=== PATIENT | female | born 1970 | race Caucasian/White ===

== ENCOUNTER 2018-11-05 10:48 | Emergency (ER) | payer MEDICAID ==
--- NOTE | 2018-11-05 13:44 | EDM.PDOC ---
ED HPI GENERAL MEDICAL PROBLEM - General Chief Complaint: Lower Extremity Injury/Pain Stated Complaint: POSSIBLE BLOOD CLOT RT LEG Time Seen by Provider: 11/05/18 13:44 Source of Information: Reports: Patient History Limitations: Reports: No Limitations - History of Present Illness INITIAL COMMENTS - FREE TEXT/NARRATIVE: pt arrived with increased pain and swelling in the rt hip and upper femur area. She has not had a fall. She does have a history of lung Ca and has known metastatic disease. She has surgery recently and had a bipolar rt hip done. At that time there was some removal of tumor. She started having increased swelling a few days ago and her pain has gotten alot worse. Onset: Gradual, Other ( worse today. ) Duration: Hour(s): Location: Reports: Lower Extremity, Right Associated Symptoms: Reports: No Other Symptoms Right Upper Leg Pain Score (Numeric/FACES): 6 - Related Data Allergies Allergy/AdvReac Type Severity Reaction Status Date / Time No Allergy Information Allergy none Verified 01/15/16 08:28 Available Home Meds: Home Meds Calcium Carbonate/Vitamin D3 [Calcium 500 + Vit D 200 Caplet] 1 each PO BID 03/18 [History] Gabapentin [Neurontin] 300 mg PO TID 11/05/18 [History] Hydrocodone/Acetaminophen [Hydrocodon-Acetaminophen 5-325] 1 - 2 each PO QID 03/18 [History] Morphine Sulfate [Morphine Sulfate Cr] 15 mg PO BID 11/05/18 [History] Past Medical History - Past Health History Medical/Surgical History: Denies Medical/Surgical History Oncologic (Cancer) History: Reports: Lung - Infectious Disease History Infectious Disease History: Reports: Chicken Pox - Past Surgical History Musculoskeletal Surgical History: Reports: Hip Replacement, Other (See Below) Other Musculoskeletal Surgeries/Procedures:: 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 Social & Family History - Tobacco Use Smoking Status *Q: Former Smoker Used Tobacco, but Quit: Yes Month/Year Tobacco Last Used: 4 months ago - Caffeine Use Caffeine Use: Reports: Coffee - Recreational Drug Use Recreational Drug Use: No Review of Systems - Review of Systems Review Of Systems: See Below Constitutional: Reports: No Symptoms Eyes: Reports: No Symptoms Ears: Reports: No Symptoms Nose: Reports: No Symptoms Mouth/Throat: Reports: No Symptoms Respiratory: Reports: No Symptoms Cardiovascular: Reports: No Symptoms GI/Abdominal: Reports: No Symptoms Genitourinary: Reports: No Symptoms Musculoskeletal: Reports: Other (pain in the rt hip. There is definite increase in swelling in the hip area. ) Skin: Reports: No Symptoms Neurological: Reports: No Symptoms ED EXAM, GENERAL - Physical Exam Exam: See Below Free Text/Narrative:: Pt arrived with increased pain and swelling in the rt hip/ She has no history of a fall. Exam Limited By: No Limitations General Appearance: Alert, Anxious, Moderate Distress Ears: Normal TMs Nose: Normal Inspection Throat/Mouth: Normal Inspection Head: Atraumatic Neck: Normal Inspection Respiratory/Chest: No Respiratory Distress GI/Abdominal: Soft, Non-Tender (Female) Exam: Deferred Rectal (Female) Exam: Deferred Back Exam: Normal Inspection Extremities: Other (pain and swelling in the rt hip. She has increased pain and is having difficulty getting around. ) Neurological: Alert, Oriented, Normal Cognition Course - Vital Signs Last Recorded V/S: Last Vital Signs Temp 37.0 C 11/05/18 16:10 Pulse 94 11/05/18 16:10 Resp 16 11/05/18 16:10 BP 138/89 11/05/18 16:10 Pulse Ox 98 11/05/18 16:10 - Orders/Labs/Meds Labs: Laboratory Tests 11/05/18 11/05/18 11/05/18 Range/Units 13:53 13:53 14:51 WBC 7.5 (4.5-11.0) K/uL RBC 4.03 (3.30-5.50) M/uL Hgb 10.5 L (12.0-15.0) g/dL Hct 32.3 L (36.0-48.0) % MCV 80 (80-98) fL MCH 26 L (27-31) pg MCHC 33 (32-36) % Plt Count 503 H (150-400) K/uL Neut % (Auto) 59 (36-66) % Lymph % (Auto) 30 (24-44) % [place] % (Auto) 9 H (2-6) % Eos % (Auto) 2 (2-4) % Baso % (Auto) 1 (0-1) % Sodium 137 L (140-148) mmol/L Potassium 4.2 (3.6-5.2) mmol/L Chloride 100 (100-108) mmol/L Carbon Dioxide 28 (21-32) mmol/L Anion Gap 13.2 (5.0-14.0) mmol/L BUN 7 (7-18) mg/dL Creatinine 0.7 (0.6-1.0) mg/dL Est Cr Clr Drug Dosing 76.04 mL/min Estimated GFR (MDRD) > 60 (>60) Glucose 91 (74-106) mg/dL Calcium 9.7 (8.5-10.1) mg/dL Total Bilirubin 0.2 (0.2-1.0) mg/dL AST 14 L (15-37) U/L ALT 17 (12-78) U/L Alkaline Phosphatase 102 (46-116) U/L Total Protein 8.5 H (6.4-8.2) g/dL Albumin 2.9 L (3.4-5.0) g/dL Globulin 5.6 H (2.3-3.5) g/dL Albumin/Globulin Ratio 0.5 L (1.2-2.2) Urine Color Yellow Urine Appearance Clear Urine pH 7.0 (4.5-8.0) Ur Specific [place] 1.005 L (1.008-1.030) Urine Protein Negative (NEGATIVE) mg/dL Urine Glucose (UA) Normal (NEGATIVE) mg/dL Urine Ketones Negative (NEGATIVE) mg/dL Urine Occult Blood Negative (NEGATIVE) Urine Nitrite Negative (NEGATIVE) Urine Bilirubin Negative (NEGATIVE) Urine Urobilinogen Normal (NORMAL) mg/dL Ur Leukocyte Esterase Negative (NEGATIVE) Urine RBC 0-5 (0-5) Urine WBC 0-5 (0-5) Ur Epithelial Cells Many Amorphous Sediment Few Urine Bacteria Not seen Urine Mucus Not seen Meds: Medications Discontinued Medications Generic Name Dose Route Start Last Admin Trade Name Freq PRN Reason Stop Dose Admin Hydrocodone Bitart/Acetaminophen 1 tab 11/05/18 17:59 11/05/18 18:03 [place] 325-5 Mg PO 11/05/18 18:00 1 tab ONETIME ONE Administration - Re-Assessments/Exams Free Text/Narrative Re-Assessment/Exam: 11/05/18 17:54 Us revealed no evidence of clots in the leg. A cat scan of the hip revealed bone destruction and a pathological fracture of the proximal femur. 11/05/18 18:41 Dr Vigil-- her orthopeditis was contacted and he advised that she keep the appt for thur. 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 keep appt with [facility] on thur--Dr Vigil. jc to percocet for rescue relief of pain, . Hold norco while on percocet, cont morphine as ordered.
--- NOTE | 2018-11-05 15:41 | US ---
VL Duplex Lwr Ext Veins Ltd Rt INDICATION: swelling and pain in the leg FINDINGS: Ultrasound examination of the lower extremity using Doppler and compressive technique demonstrates that the common femoral, femoral, and popliteal veins are patent, and negative for thrombus. The calf veins were segmentally visualized and are negative where seen. IMPRESSION: Negative for deep venous thrombosis in the right lower extremity.
--- NOTE | 2018-11-05 17:00 | CRLCT ---
HISTORY: Right hip pain. Prior hip replacement. Prior tumor. TECHNIQUE: Noncontrast CT of the right hip. COMPARISON: No prior available for comparison at time interpretation. FINDINGS: There is a bipolar right hip replacement. There is extensive abnormal periprosthetic lucency/osteolysis about the femoral component with areas of associated cortical destruction/absence, especially medially. There is also an area of cortical destruction present along the anterior lateral aspect of the proximal femur below the level of the lesser trochanter. Findings likely relate to neoplastic infiltration with osteolysis. Aggressive infection could appear similarly. On axial image #46 of series 4, there is linear lucency involving the greater trochanter compatible with fracture. There is also effectively fracture through the intertrochanteric region anteriorly on coronal image #30 of series 5 with cortical deficiency. - There is soft tissue fullness involving the vastus medialis muscle proximally which may relate to tumor infiltration or inflammatory change. - There is no fracture involving the osseous acetabulum nor dislocation of the prosthesis. The right superior and inferior pubic rami are intact. IMPRESSION: 1. Bipolar right hip replacement. 2. Abnormal periprosthetic lucency involving the proximal femur with cortical destruction and pathologic fracture. Findings likely relate to neoplastic infiltration (given this patient`s history). Aggressive infection could appear similarly. 3. Some soft tissue fullness of the adjacent vastus medialis muscle proximally may relate to tumor infiltration or inflammatory change. 4. Findings discussed with Dr. Wilson on 11/05/2018 at 16:54 hours. Dictated by Earl Miranda MD @ 11/05/2018 4:59:18 PM Please note that all CT scans at this facility use dose modulation, iterative reconstruction, and/or weight-based dosing when appropriate to reduce radiation dose to as low as reasonably achievable. Dictated by: Earl Miranda MD @ 11/05/2018 16:59:25 (Electronically Signed)
[2018-11-05] MEDS ORDERED: Acetaminophen/HYDROcodone 325-5 MG Tab PO ONE (17:59)
== END 2018-11-05 19:02 | disposition home or self-care (01) ==
LOC: JP.ED 10:48
DX: M84.559A Pathological fracture in neoplastic disease, hip, unspecified, initial encounter for fracture (principal); Z87.891 Personal history of nicotine dependence; Z79.899 Other long term (current) drug therapy
CPT/HCPCS: 36415; 73700; 80053; 81001; 85025; 93971; 99284; A9270

== ENCOUNTER 2018-11-11 09:24 | Emergency (ER) | payer MEDICAID ==
--- NOTE | 2018-11-11 11:09 | EDM.PDOC ---
<OfficerMj - Last Filed: 11/11/18 12:32> ED HPI GENERAL MEDICAL PROBLEM - General Chief Complaint: General Stated Complaint: BACK, LEG AND BUTT PAIN Time Seen by Provider: 11/11/18 10:55 - Related Data Allergies Allergy/AdvReac Type Severity Reaction Status Date / Time No Allergy Information Allergy none Verified 11/11/18 10:28 Available Home Meds: Home Meds Calcium Carbonate/Vitamin D3 [Calcium 500 + Vit D 200 Caplet] 1 each PO BID 03/18 [History] Gabapentin [Neurontin] 300 mg PO TID 11/05/18 [History] Hydrocodone/Acetaminophen [Hydrocodon-Acetaminophen 5-325] 1 - 2 each PO QID 03/18 [History] Morphine Sulfate [Morphine Sulfate Cr] 15 mg PO BID 11/05/18 [History] oxyCODONE 1 tab PO Q4H 11/11/18 [History] oxyCODONE 1 tab PO Q4H PRN 11/11/18 [History] ED EXAM, GENERAL - Physical Exam Free Text/Narrative:: Agree with exam below Course - Vital Signs Last Recorded V/S: Last Vital Signs Temp 36.8 C 11/11/18 11:50 Pulse 88 11/11/18 11:50 Resp 16 11/11/18 11:50 BP 124/84 11/11/18 11:50 Pulse Ox 98 11/11/18 11:50 - Orders/Labs/Meds Orders: Active Orders 24 hr Category Date Time Status Sodium Chloride 0.9% [Saline Flush] Med 11/11/18 11:14 Active 10 ml FLUSH ASDIRECTED PRN Saline Lock Insert [OM.PC] Routine Oth 11/11/18 11:14 Ordered Medication Orders Sodium Chloride (Saline Flush) 10 ml FLUSH ASDIRECTED PRN PRN Reason: Keep Vein Open Last Admin: 11/11/18 11:35 Dose: 10 ml Admin: 11/11/18 11:31 Dose: 10 ml Meds: Medications Generic Name Dose Route Start Last Admin Trade Name Freq PRN Reason Stop Dose Admin Sodium Chloride 10 ml 11/11/18 11:14 11/11/18 11:35 Saline Flush FLUSH 10 ml ASDIRECTED PRN Administration Keep Vein Open Discontinued Medications Generic Name Dose Route Start Last Admin Trade Name Freq PRN Reason Stop Dose Admin Hydromorphone HCl 1 mg 11/11/18 11:14 11/11/18 11:32 Dilaudid IVPUSH 11/11/18 11:15 1 mg ONETIME ONE Administration Ketamine HCl 10 mg 11/11/18 11:45 11/11/18 11:39 Ketalar IV 11/11/18 11:46 10 mg ONETIME ONE Administration Ketamine HCl 10 mg 11/11/18 11:14 11/11/18 11:40 Ketalar IV 11/11/18 11:15 Not Given ONETIME ONE Departure - Departure Time of Disposition: 12:34 Disposition: Home, Self-Care 01 Clinical Impression: Pain due to malignant neoplasm metastatic to bone, Pain - Discharge Information Instructions: What You Need to Know About Chronic Back Pain Referrals: Fawad Guzman NP [Primary Care Provider] - Forms: ED Department Discharge Additional Instructions: Resume previous medication regime. Follow up with provider in morning. Ask about Palliative care for better pain management. - My Orders Last 24 Hours: My Active Orders 11/11/18 11:14 Sodium Chloride 0.9% [Saline Flush] 10 ml FLUSH ASDIRECTED PRN Saline Lock Insert [OM.PC] Routine - Assessment/Plan Last 24 Hours: My Active Orders 11/11/18 11:14 Sodium Chloride 0.9% [Saline Flush] 10 ml FLUSH ASDIRECTED PRN Saline Lock Insert [OM.PC] Routine Plan: Assessment Acuity = acute on chronic Site and laterality = intractable bone pain low back leg right Etiology = [secondary to bone cancer in radiation therapy Manifestations = chronic pain now improved Location of injury = Home Lab values = none Plan She had good improvement combination Dilaudid and ketamine she will follow-up with her cancer care provider tomorrow Mj Cain MD was personally available for consultation in the ED. I have reviewed the chart and agree with the documentation as recorded by the SALES SECRETARY Student, including the assessment, treatment plan and disposition. Mj Cain MD personally saw and examined the patient. I have reviewed and agree with the SALES SECRETARY Student's findings. This note was dictated using [employer] voice recognition software please call with any questions on syntax or grammar. <Shana Mcmahan - Last Filed: 11/11/18 12:53> ED HPI GENERAL MEDICAL PROBLEM - General Source of Information: Reports: Patient History Limitations: Reports: No Limitations - History of Present Illness INITIAL COMMENTS - FREE TEXT/NARRATIVE: Patient comes in to ED for complaints of severe leg and back pain which began on after long car ride from radiation therapy in [place]. Onset: Gradual Onset Date: 11/15/18 Location: Reports: Back, Upper Extremity, Right, Radiates to (right gluteal region) Quality: Reports: Sharp (states it's normal pain type for her, but this is more intense. ), Stabbing, Throbbing Improves with: Reports: None Worsens with: Reports: None Associated Symptoms: Reports: No Other Symptoms Treatments LOCAL ANNOUNCER: Reports: Other (see below) (has taken all her prescription medications without relief. 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: Reports: Oncologic (Cancer) History: Reports: Lung - Infectious Disease History Infectious Disease History: Reports: Chicken Pox, Measles, Mumps - Past Surgical History Respiratory Surgical History: Reports: Lung Biopsies, Other (See Below) Other Respiratory Surgeries/Procedures: Lung CA Female Surgical History: Reports: Tubal Ligation Musculoskeletal Surgical History: Reports: Hip Replacement, Other (See Below) Other Musculoskeletal Surgeries/Procedures:: 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 Social & Family History - Tobacco Use Smoking Status *Q: Former Smoker Years of Tobacco use: 30 Packs/Tins Daily: 1 Used Tobacco, but Quit: Yes Month/Year Tobacco Last Used: Jul 2018 Second Hand Smoke Exposure: No - Caffeine Use Caffeine Use: Reports: Coffee, Soda - Recreational Drug Use Recreational Drug Use: No ED ROS GENERAL - Review of Systems Review Of Systems: See Below Constitutional: Reports: No Symptoms HEENT: Reports: No Symptoms Respiratory: Reports: No Symptoms Cardiovascular: Reports: No Symptoms Endocrine: Reports: No Symptoms GI/Abdominal: Reports: No Symptoms : Reports: No Symptoms Musculoskeletal: Reports: No Symptoms Skin: Reports: No Symptoms Neurological: Reports: Other (non-ambulating due to surgical procedure) Psychiatric: Reports: No Symptoms Hematologic/Lymphatic: Reports: No Symptoms Immunologic: Reports: No Symptoms ED EXAM, GENERAL - Physical Exam Exam: See Below Exam Limited By: No Limitations General Appearance: Alert, WD/WN, No Apparent Distress Ears: Hearing Grossly Normal Respiratory/Chest: No Respiratory Distress, Lungs Clear, Normal Breath Sounds, No Accessory Muscle Use, Chest Non-Tender Cardiovascular: Normal Peripheral Pulses, Regular Rate, Rhythm, No Edema Back Exam: Other (able to sit forward in cart) Extremities: No Pedal Edema Neurological: Alert, Oriented, CN II-XII Intact, Normal Cognition, Normal Gait, Normal Reflexes, No Motor/Sensory Deficits Psychiatric: Normal Affect, Normal Mood Skin Exam: Warm, Dry, Intact, Normal Color, No Rash Course - Vital Signs Text/Narrative:: Patient admits that has constant pain since surgery, but able to take medications and get comfortable usually. Feels that lying in the brace made for her by the radiology team and a long car ride back from treatment makes this pain intractable. After discussion with Irais in pharmacy, she will mix Ketamine 10mg in small amount NS or LR for infusion given by provider team, as discussion with duty manager revealed that ER Nursing staff are not in scope of their practice if they administer this medication. 1215: I confirmed patient identity per two identifiers and then administered 10 mg ketamine per infusion pump over 20 minutes, after recieved by pharmacy. Post infusion vital signs: BP 120/84, P 91, pulse ox 98%. Patient rates pain 2/10 and says this is very manageable. Hasn't had this comfort for many months. Long discussion with patient and her about having a Palliative Care consult for pain management. Discussed concept of this service. Patient will inquire with team at appointment tomorrow. After consult with preceptor, recommendation to resume regular schedule of activity and pain medications. - Orders/Labs/Meds Orders: Active Orders 24 hr Category Date Time Status Sodium Chloride 0.9% [Saline Flush] Med 11/11/18 11:14 Active 10 ml FLUSH ASDIRECTED PRN Saline Lock Insert [OM.PC] Routine Oth 11/11/18 11:14 Ordered Medication Orders Sodium Chloride (Saline Flush) 10 ml FLUSH ASDIRECTED PRN PRN Reason: Keep Vein Open Last Admin: 11/11/18 11:35 Dose: 10 ml Admin: 11/11/18 11:31 Dose: 10 ml Meds: Medications Generic Name Dose Route Start Last Admin Trade Name Freq PRN Reason Stop Dose Admin Sodium Chloride 10 ml 11/11/18 11:14 11/11/18 11:35 Saline Flush FLUSH 10 ml ASDIRECTED PRN Administration Keep Vein Open Discontinued Medications Generic Name Dose Route Start Last Admin Trade Name Freq PRN Reason Stop Dose Admin Hydromorphone HCl 1 mg 11/11/18 11:14 11/11/18 11:32 Dilaudid IVPUSH 11/11/18 11:15 1 mg ONETIME ONE Administration Ketamine HCl 10 mg 11/11/18 11:45 11/11/18 11:39 Ketalar IV 11/11/18 11:46 10 mg ONETIME ONE Administration Ketamine HCl 10 mg 11/11/18 11:14 11/11/18 11:40 Ketalar IV 11/11/18 11:15 Not Given ONETIME ONE - My Orders Last 24 Hours: My Active Orders 11/11/18 11:14 Sodium Chloride 0.9% [Saline Flush] 10 ml FLUSH ASDIRECTED PRN Saline Lock Insert [OM.PC] Routine - Assessment/Plan Last 24 Hours: My Active Orders 11/11/18 11:14 Sodium Chloride 0.9% [Saline Flush] 10 ml FLUSH ASDIRECTED PRN Saline Lock Insert [OM.PC] Routine
[2018-11-11] MEDS ORDERED: Ketamine 500 MG/5 ML MDV IV ONE ×2 (11:14→11:45)
[2018-11-11] MEDS ORDERED: HYDROmorphone 1 MG/ML Syringe IVPUSH ONE (11:14)
[2018-11-11] MEDS: Sodium Chloride 0.9% 10 ML Syringe FLUSH PRN ×2 (11:31→11:35)
== END 2018-11-11 12:40 | disposition home or self-care (01) ==
LOC: JP.ED 09:24
DX: G89.3 Neoplasm related pain (acute) (chronic) (principal); C79.51 Secondary malignant neoplasm of bone; Z87.891 Personal history of nicotine dependence; Z79.899 Other long term (current) drug therapy
CPT/HCPCS: 96365; 96375; 99283; J1170; 99284

== ENCOUNTER 2019-01-12 21:41 | Emergency (ER) | payer MEDICAID ==
[2019-01-12] MEDS ORDERED: Sodium Chloride 0.9% 10 ML Syringe FLUSH PRN (21:48)
[2019-01-12] MEDS ORDERED: Ondansetron 4 MG/2 ML SDV IVPUSH ONE (21:48)
[2019-01-12] MEDS ORDERED: HYDROmorphone 1 MG/ML Syringe IVPUSH ONE (21:48)
--- NOTE | 2019-01-12 23:46 | EDM.PDOC ---
ED HPI GENERAL MEDICAL PROBLEM - General Chief Complaint: Chest Pain Stated Complaint: SOB, STOMACH PAINS Time Seen by Provider: 01/12/19 21:48 Source of Information: Reports: Patient History Limitations: Reports: No Limitations - History of Present Illness INITIAL COMMENTS - FREE TEXT/NARRATIVE: This patient who has lung cancer metastatic to bone and has been undergoing chemotherapy presented with sudden severe upper abdominal pain beginning at about 9:15 PM tonight. She described it as 10 out of 10 and in the epigastric area. There is been no vomiting. It does cause her to be nauseated. Those initially the pain went from a upper abdomen all the way into the chest. Now it has settled into just the upper abdomen chest/abd Pain Score (Numeric/FACES): 10 - Related Data Allergies Allergy/AdvReac Type Severity Reaction Status Date / Time No Allergy Information Allergy none Verified 01/12/19 21:48 Available Home Meds: Home Meds Calcium Carbonate/Vitamin D3 [Calcium 500 + Vit D 200 Caplet] 1 each PO BID 03/18 [History] Gabapentin [Neurontin] 300 mg PO TID 11/05/18 [History] Hydrocodone/Acetaminophen [Hydrocodon-Acetaminophen 5-325] 1 - 2 each PO QID 03/18 [History] Morphine Sulfate [Morphine Sulfate Cr] 15 mg PO BID 11/05/18 [History] oxyCODONE 1 tab PO Q4H 11/11/18 [History] oxyCODONE 1 tab PO Q4H PRN 11/11/18 [History] Past Medical History - Past Health History Medical/Surgical History: Denies 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: Musculoskeletal History: Reports: Back Pain, Chronic Oncologic (Cancer) History: Reports: Bone, Lung - Infectious Disease History Infectious Disease History: Reports: Chicken Pox, Measles, Mumps - Past Surgical History Respiratory Surgical History: Reports: Lung Biopsies, Other (See Below) Other Respiratory Surgeries/Procedures: Lung CA Female Surgical History: Reports: Tubal Ligation Musculoskeletal Surgical History: Reports: Hip Replacement, Other (See Below) Other Musculoskeletal Surgeries/Procedures:: 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 ED EXAM, GENERAL - Physical Exam Exam: See Below Exam Limited By: No Limitations General Appearance: Alert, Moderate Distress, Thin Eye Exam: Bilateral Eye: Normal Inspection Throat/Mouth: Normal Oropharynx Neck: Supple Respiratory/Chest: Lungs Clear Cardiovascular: Regular Rate, Rhythm GI/Abdominal: Normal Bowel Sounds, Other (Severe tenderness to the upper abdomen mostly in midline and left upper quadrant. Difficult to examine her because it was so tender.) Extremities: Normal Inspection Neurological: Alert, Oriented Skin Exam: Warm, Dry Course - Vital Signs Last Recorded V/S: Last Vital Signs Temp 37.3 C 01/12/19 22:11 Pulse 74 01/12/19 22:54 Resp 12 01/12/19 22:54 BP 105/52 L 01/12/19 22:54 Pulse Ox 99 01/12/19 22:54 - Orders/Labs/Meds Orders: Active Orders 24 hr Category Date Time Status EKG Documentation Completion [RC] ASDIRECTED Care 01/12/19 22:13 Active Sodium Chloride 0.9% [Saline Flush] Med 01/12/19 21:48 Active 10 ml FLUSH ASDIRECTED PRN Saline Lock Insert [OM.PC] Urgent Oth 01/12/19 21:48 Ordered EKG 12 Lead [EK] Urgent Ther 01/12/19 22:13 Ordered Medication Orders Sodium Chloride (Saline Flush) 10 ml FLUSH ASDIRECTED PRN PRN Reason: Keep Vein Open Last Admin: 01/12/19 21:58 Dose: 10 ml Labs: Laboratory Tests 01/12/19 01/12/19 01/12/19 Range/Units 22:23 22:23 22:23 WBC 6.7 (4.5-11.0) K/uL RBC 4.11 (3.30-5.50) M/uL Hgb 9.8 L (12.0-15.0) g/dL Hct 31.6 L (36.0-48.0) % MCV 77 L (80-98) fL MCH 24 L (27-31) pg MCHC 31 L (32-36) % Plt Count 237 (150-400) K/uL Neut % (Auto) 67 H (36-66) % Lymph % (Auto) 19 L (24-44) % [place] % (Auto) 13 H (2-6) % Eos % (Auto) 0 L (2-4) % Baso % (Auto) 0 (0-1) % Sodium 140 (140-148) mmol/L Potassium 3.5 L (3.6-5.2) mmol/L Chloride 103 (100-108) mmol/L Carbon Dioxide 28 (21-32) mmol/L Anion Gap 12.5 (5.0-14.0) mmol/L BUN 16 D (7-18) mg/dL Creatinine 0.7 (0.6-1.0) mg/dL Est Cr Clr Drug Dosing 75.73 mL/min Estimated GFR (MDRD) > 60 (>60) Glucose 134 H (74-106) mg/dL Calcium 8.5 (8.5-10.1) mg/dL Total Bilirubin 0.2 (0.2-1.0) mg/dL AST 46 H D (15-37) U/L ALT 108 H (12-78) U/L Alkaline Phosphatase 55 (46-116) U/L Total Protein 6.6 (6.4-8.2) g/dL Albumin 2.8 L (3.4-5.0) g/dL Globulin 3.8 H (2.3-3.5) g/dL Albumin/Globulin Ratio 0.7 L (1.2-2.2) Lipase 212 (73-393) U/L Meds: Medications Generic Name Dose Route Start Last Admin Trade Name Freq PRN Reason Stop Dose Admin Sodium Chloride 10 ml 01/12/19 21:48 01/12/19 21:58 Saline Flush FLUSH 10 ml ASDIRECTED PRN Administration Keep Vein Open Discontinued Medications Generic Name Dose Route Start Last Admin Trade Name Freq PRN Reason Stop Dose Admin Hydromorphone HCl 1 mg 01/12/19 21:48 01/12/19 21:56 Dilaudid IVPUSH 01/12/19 21:49 1 mg ONETIME ONE Administration Ondansetron HCl 4 mg 01/12/19 21:48 01/12/19 21:55 Zofran IVPUSH 01/12/19 21:49 4 mg ONETIME ONE Administration - Re-Assessments/Exams Free Text/Narrative Re-Assessment/Exam: 01/12/19 23:43 Patient was reexamined after she received Dilaudid and Zofran IV. She got complete pain relief from this and I repeated the abdominal exam and it is completely nontender now even to pretty deep palpation. Labs were reviewed and there are no significant abnormalities with that would explain the pain. The pain and tenderness suggested biliary colic possibly from a gallstone but that has been completely relieved. A gallbladder ultrasound might be considered in the future but that's not needed tonight. Departure - Departure Time of Disposition: 23:45 Disposition: Home, Self-Care 01 Condition: Fair Clinical Impression: Acute abdominal pain Referrals: PCP,None [Primary Care Provider] - Additional Instructions: You may actually have a gallstone which plugged up your gallbladder for a little while. Those stones can become dislodged and allow the gallbladder to drain normally and that will completely relieve the pain. If there is a gallstone then this can happen again. You would need to have an ultrasound to see if there is something in the gallbladder and frequently there is. There is no need to have a gallbladder ultrasound tonight however. You should talk this over with your regular Dr. - My Orders Last 24 Hours: My Active Orders 01/12/19 21:48 Sodium Chloride 0.9% [Saline Flush] 10 ml FLUSH ASDIRECTED PRN Saline Lock Insert [OM.PC] Urgent 01/12/19 22:13 EKG Documentation Completion [RC] ASDIRECTED EKG 12 Lead [EK] Urgent - Assessment/Plan Last 24 Hours: My Active Orders 01/12/19 21:48 Sodium Chloride 0.9% [Saline Flush] 10 ml FLUSH ASDIRECTED PRN Saline Lock Insert [OM.PC] Urgent 01/12/19 22:13 EKG Documentation Completion [RC] ASDIRECTED EKG 12 Lead [EK] Urgent
== END 2019-01-12 23:58 | disposition home or self-care (01) ==
LOC: JP.ED 21:41
DX: R10.12 Left upper quadrant pain (principal); R10.13 Epigastric pain; C34.90 Malignant neoplasm of unspecified part of unspecified bronchus or lung; C79.51 Secondary malignant neoplasm of bone; Z79.899 Other long term (current) drug therapy; Z98.51 Tubal ligation status
CPT/HCPCS: 36415; 80053; 83690; 85025; 93005; 96374; 96375; 99285; J1170; J2405

== ENCOUNTER 2019-03-18 10:05 | Emergency (ER) | payer MEDICAID ==
--- NOTE | 2019-03-18 10:54 | EDM.PDOC ---
ED HPI GENERAL MEDICAL PROBLEM - General Chief Complaint: Lower Extremity Injury/Pain Stated Complaint: RIGHT LEG PAIN/SWELLING Time Seen by Provider: 03/18/19 10:30 Source of Information: Reports: Patient History Limitations: Reports: No Limitations - History of Present Illness INITIAL COMMENTS - FREE TEXT/NARRATIVE: 48-year-old female with a history of colon cancer, right hip repair in August of this year presents with some diffuse right leg pain and slight swelling. She discusses with her oncologist and he sent her in for an ultrasound of her leg to rule out DVT. She has no shortness of breath, abdominal pain, palpitations or other complaints currently. Onset: Gradual (Over the past 2 days) Location: Reports: Lower Extremity, Right Associated Symptoms: Denies: Fever/Chills, Headaches, Loss of Appetite, Nausea/ Vomiting, Shortness of Breath, Weakness Abdomen Pain Score (Numeric/FACES): 5 - Related Data Allergies Allergy/AdvReac Type Severity Reaction Status Date / Time No Allergy Information Allergy none Verified 03/18/19 10:19 Available Home Meds: Home Meds Calcium Carbonate/Vitamin D3 [Calcium 500 + Vit D 200 Caplet] 1 each PO BID 03/18 [History] Morphine Sulfate [Morphine Sulfate Cr] 15 mg PO BID 11/05/18 [History] oxyCODONE 1 tab PO Q4H PRN 11/11/18 [History] Folic Acid 1 mg PO DAILY 03/18/19 [History] HYDROmorphone [Dilaudid] 4 mg PO Q4H PRN 03/18/19 [History] Potassium Chloride [Klor-Con] 20 meq PO DAILY 03/18/19 [History] Pregabalin [Lyrica] 50 mg PO DAILY 03/18/19 [History] Ursodiol 250 mg PO DAILY 03/18/19 [History] Past Medical History - Past Health History Medical/Surgical History: Denies Medical/Surgical History Gastrointestinal History: Reports: Cholelithiasis 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: Musculoskeletal History: Reports: Back Pain, Chronic Oncologic (Cancer) History: Reports: Bone, Lung - Infectious Disease History Infectious Disease History: Reports: Chicken Pox, Measles, Mumps - Past Surgical History Respiratory Surgical History: Reports: Lung Biopsies, Other (See Below) Other Respiratory Surgeries/Procedures: Lung CA Female Surgical History: Reports: Tubal Ligation Musculoskeletal Surgical History: Reports: Hip Replacement, Other (See Below) Other Musculoskeletal Surgeries/Procedures:: 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 Social & Family History - Tobacco Use Smoking Status *Q: Former Smoker Used Tobacco, but Quit: Yes Month/Year Tobacco Last Used: 2018 - Caffeine Use Caffeine Use: Reports: None - Recreational Drug Use Recreational Drug Use: No Review of Systems - Review of Systems Review Of Systems: See Below Constitutional: Denies: Fever Respiratory: Reports: No Symptoms Cardiovascular: Reports: No Symptoms GI/Abdominal: Reports: No Symptoms Skin: Denies: Pallor, Erythema Neurological: Denies: Paresthesia ED EXAM, GENERAL - Physical Exam Exam: See Below Exam Limited By: No Limitations General Appearance: Alert, No Apparent Distress Respiratory/Chest: No Respiratory Distress, Lungs Clear Cardiovascular: Regular Rate, Rhythm Extremities: Other (Patient is a well-healed surgical scar over the right lateral hip. She has mild palpation tenderness to the hamstring area and popliteal area of the right leg and just a trace of ankle edema.) Course - Vital Signs Last Recorded V/S: Last Vital Signs Temp 96.9 F 03/18/19 10:22 Pulse 91 03/18/19 10:22 Resp 14 03/18/19 10:22 BP 116/74 03/18/19 10:22 Pulse Ox 100 03/18/19 10:22 - Orders/Labs/Meds Orders: Active Orders 24 hr Category Date Time Status VL Duplex Lwr Ext Veins Ltd Rt [US] Stat Exams 03/18/19 10:38 Taken - Re-Assessments/Exams Free Text/Narrative Re-Assessment/Exam: 03/18/19 10:54 A right lower extremity DVT ultrasound was ordered. 03/18/19 11:16 DVT study was negative. Patient was encouraged to wear her NESTOR stockings to reduce swelling and discomfort. Activity as tolerated. Continue her regular medications. Departure - Departure Time of Disposition: 11:29 Disposition: Home, Self-Care 01 Clinical Impression: Lower extremity edema - Discharge Information Instructions: Edema Referrals: PCP,None [Primary Care Provider] - Forms: ED Department Discharge Care Plan Goals: Increase activity as tolerated, elevate leg when able and continue your regular medications. NESTOR stockings applied in the morning and worn all day will be helpful. - My Orders Last 24 Hours: My Active Orders 03/18/19 10:38 VL Duplex Lwr Ext Veins Ltd Rt [US] Stat - Assessment/Plan Last 24 Hours: My Active Orders 03/18/19 10:38 VL Duplex Lwr Ext Veins Ltd Rt [US] Stat
--- NOTE | 2019-03-18 13:21 | US ---
VL Duplex Lwr Ext Veins Ltd Rt INDICATION: leg swelling, cancer doc sent in for ultrasound FINDINGS: Ultrasound examination of the lower extremity using Doppler and compressive technique demonstrates that the common femoral, femoral, and popliteal veins are patent, and negative for thrombus. The calf veins were segmentally visualized and are negative where seen. IMPRESSION: No evidence for deep venous thrombosis.
== END 2019-03-18 11:29 | disposition home or self-care (01) ==
LOC: JP.ED 10:05
DX: R60.0 Localized edema (principal); Z87.891 Personal history of nicotine dependence; Z79.899 Other long term (current) drug therapy
CPT/HCPCS: 93971-26; 93971-RT; 99283-25

== ENCOUNTER 2019-05-08 17:57 | Emergency (ER) | payer MEDICAID ==
[2019-05-08] MEDS ORDERED: Ondansetron 4 MG/2 ML SDV IVPUSH ONE (19:03)
[2019-05-08] MEDS ORDERED: Ketorolac 30 MG/ML SDV IVPUSH ONE (19:03)
[2019-05-08] MEDS ORDERED: HYDROmorphone 1 MG/ML Syringe IVPUSH ONE ×2 (19:03→19:42)
[2019-05-08] MEDS ORDERED: Sodium Chloride 0.9% 10 ML Syringe FLUSH PRN (19:03)
--- NOTE | 2019-05-08 20:28 | CRLUS ---
INDICATION: Acute cholecystitis. LIMITED ABDOMEN ULTRASOUND Technique: Multiple sonographic images were performed over the right upper quadrant. Comparison: 01/18/2019. Findings: The gallbladder contains mobile echogenic foci with faint acoustic shadowing, consistent with gallstones. No gallbladder wall thickening or pericholecystic fluid is seen. There was no sonographic Alvarenga`s sign. The common bile duct is dilated and measures 13 millimeters in diameter, similar to the previous exam. No intraductal stone is visualized. The visualized portions of the liver, pancreas, and right kidney are unremarkable. IMPRESSION: 1. Cholelithiasis without sonographic evidence of cholecystitis. 2. Dilated common bile duct measuring 13 millimeters in diameter, similar to the previous exam. ANISA ZACARIAS MD [facility] Dictated by Paulo Zacarias MD @ 05/08/2019 8:24:45 PM Dictated by: Paulo Zacarias MD @ 05/08/2019 20:25:56 (Electronically Signed)
--- NOTE | 2019-05-08 21:49 | EDM.PDOC ---
ED HPI GENERAL MEDICAL PROBLEM - General Chief Complaint: Abdominal Pain Stated Complaint: GALBLADDER Time Seen by Provider: 05/08/19 19:07 Source of Information: Reports: Patient History Limitations: Reports: Physical Impairment - History of Present Illness INITIAL COMMENTS - FREE TEXT/NARRATIVE: This lady who has metastatic lung cancer comes in with severe abdominal pain. She had a little bit yesterday but she's been having severe pain all day long. She says it's all over the whole abdomen. She thinks it's her gallbladder. She said they're waiting for a window in her chemotherapy when her gallbladder can be removed. She denies constipation and says she had a bowel movement today. She has morphine and Dilaudid but hasn't really taken any for the present problem Abdominal Pain Score (Numeric/FACES): 10 - Related Data Allergies Allergy/AdvReac Type Severity Reaction Status Date / Time No Allergy Information Allergy none Verified 05/08/19 19:33 Available Home Meds: Home Meds Calcium Carbonate/Vitamin D3 [Calcium 500 + Vit D 200 Caplet] 1 each PO BID 03/18 [History] Morphine Sulfate [Morphine Sulfate Cr] 30 mg PO BID 11/05/18 [History] Folic Acid 1 mg PO DAILY 03/18/19 [History] HYDROmorphone [Dilaudid] 2 mg PO Q4H PRN 03/18/19 [History] Potassium Chloride [Klor-Con] 20 meq PO DAILY 03/18/19 [History] Ursodiol 250 mg PO BID 03/18/19 [History] Past Medical History - Past Health History Medical/Surgical History: Denies Medical/Surgical History Gastrointestinal History: Reports: Cholelithiasis 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: Musculoskeletal History: Reports: Back Pain, Chronic Oncologic (Cancer) History: Reports: Bone, Lung - Infectious Disease History Infectious Disease History: Reports: Chicken Pox, Pertussis (Whooping Cough), Other (See Below) Other Infectious Disease History: flores arvin flu - Past Surgical History Respiratory Surgical History: Reports: Lung Biopsies, Other (See Below) Other Respiratory Surgeries/Procedures: Lung CA Female Surgical History: Reports: Tubal Ligation Musculoskeletal Surgical History: Reports: Hip Replacement, Other (See Below) Other Musculoskeletal Surgeries/Procedures:: 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 Social & Family History - Tobacco Use Smoking Status *Q: Never Smoker - Caffeine Use Caffeine Use: Reports: Coffee - Recreational Drug Use Recreational Drug Use: No ED ROS GENERAL - Review of Systems Review Of Systems: See Below Constitutional: Reports: No Symptoms HEENT: Reports: No Symptoms Respiratory: Reports: No Symptoms Cardiovascular: Reports: No Symptoms Endocrine: Reports: No Symptoms GI/Abdominal: Reports: Abdominal Pain : Reports: No Symptoms Musculoskeletal: Reports: No Symptoms Skin: Reports: No Symptoms Neurological: Reports: No Symptoms ED EXAM, GI/ABD - Physical Exam Exam: See Below Exam Limited By: No Limitations General Appearance: Alert, WD/WN, Severe Distress (Appears to be having severe abdominal pain. She his aunt over the side of the bed and actively vomiting or dry heaving) Eyes: Bilateral: Normal Appearance Throat/Mouth: Normal Oropharynx Head: Atraumatic Neck: Normal Inspection Respiratory/Chest: Lungs Clear Cardiovascular: Regular Rate, Rhythm, No Murmur GI/Abdominal Exam: Other (Unable to examine the abdomen initially because of her severe symptoms. I examined her after she had 2 doses of Dilaudid and her pain has completely resolved. The abdomen is nontender but I can feel mass on the right and the left which appears consistent with stool.) Extremities: Normal Inspection Neurological: Alert, Oriented Psychiatric: Normal Affect Skin Exam: Warm, Dry Course - Vital Signs Last Recorded V/S: Last Vital Signs Temp 35.3 C 05/08/19 19:20 Pulse 57 L 05/08/19 19:20 Resp 16 05/08/19 19:20 BP 118/59 L 05/08/19 19:20 Pulse Ox 100 05/08/19 19:20 - Orders/Labs/Meds Orders: Active Orders 24 hr Category Date Time Status Saline Lock Insert [OM.PC] Urgent Oth 05/08/19 19:03 Ordered Labs: Laboratory Tests 05/08/19 05/08/19 Range/Units 19:03 19:03 WBC 5.1 (4.5-11.0) K/uL RBC 3.23 L (3.30-5.50) M/uL Hgb 10.0 L (12.0-15.0) g/dL Hct 31.4 L (36.0-48.0) % MCV 97 (80-98) fL MCH 31 (27-31) pg MCHC 32 (32-36) % Plt Count 257 (150-400) K/uL Neut % (Auto) 62 (36-66) % Lymph % (Auto) 25 (24-44) % [place] % (Auto) 13 H (2-6) % Eos % (Auto) 0 L (2-4) % Baso % (Auto) 0 (0-1) % Sodium 139 L (140-148) mmol/L Potassium 3.6 (3.6-5.2) mmol/L Chloride 103 (100-108) mmol/L Carbon Dioxide 28 (21-32) mmol/L Anion Gap 11.6 (5.0-14.0) mmol/L BUN 11 (7-18) mg/dL Creatinine 0.7 (0.6-1.0) mg/dL Est Cr Clr Drug Dosing 76.04 mL/min Estimated GFR (MDRD) > 60 (>60) Glucose 144 H (74-106) mg/dL Calcium 9.8 D (8.5-10.1) mg/dL Total Bilirubin 0.8 D (0.2-1.0) mg/dL AST 225 H D (15-37) U/L ALT 183 H (12-78) U/L Alkaline Phosphatase 130 H D (46-116) U/L Total Protein 7.3 (6.4-8.2) g/dL Albumin 3.5 (3.4-5.0) g/dL Globulin 3.8 H (2.3-3.5) g/dL Albumin/Globulin Ratio 0.9 L (1.2-2.2) Meds: Medications Discontinued Medications Generic Name Dose Route Start Last Admin Trade Name Manjit PRN Reason Stop Dose Admin Hydromorphone HCl 1 mg 05/08/19 19:03 05/08/19 19:16 Dilaudid IVPUSH 05/08/19 19:04 1 mg ONETIME ONE Administration Hydromorphone HCl 1 mg 05/08/19 19:42 05/08/19 19:55 Dilaudid IVPUSH 05/08/19 19:43 1 mg ONETIME ONE Administration Ketorolac Tromethamine 30 mg 05/08/19 19:03 05/08/19 19:12 Toradol IVPUSH 05/08/19 19:04 30 mg ONETIME ONE Administration Ondansetron HCl 4 mg 05/08/19 19:03 05/08/19 19:10 Zofran IVPUSH 05/08/19 19:04 4 mg ONETIME ONE Administration Sodium Chloride 10 ml 05/08/19 19:03 05/08/19 19:18 Saline Flush FLUSH 10 ml ASDIRECTED PRN Administration Keep Vein Open - Radiology Interpretation Free Text/Narrative:: Ultrasound showed no evidence of gallbladder inflammation or wall thickening. Common bile duct 1.3 cm which is similar to what it was several months ago - Re-Assessments/Exams Free Text/Narrative Re-Assessment/Exam: 05/08/19 22:53 This lady received 2 doses of Dilaudid which gave 100% pain relief which leads me to think she was having abdominal cramping secondary to constipation Departure - Departure Time of Disposition: 21:45 Disposition: Home, Self-Care 01 Condition: Fair Clinical Impression: Abdominal pain - Discharge Information Instructions: Abdominal Pain, Adult, [id number] Referrals: Fawad Guzman JUNIOR SYSTEMS ENGINEER [Primary Care Provider] - Forms: ED Department Discharge Additional Instructions: He received a total of only 2 mg of Dilaudid IV. This makes it highly likely that your abdominal pain was caused by cramping and your exam indicates that you have a lot of stool in your colon. A lot of stool in the colon will cause some severe cramping. Even though you had a bowel movement earlier there still a lot of stool in the colon see your technically constipated. You can use a laxative such as magnesium citrate to clear out your bowels quickly or you can use a more gentle laxative such as Josi lax. You're pain medications whether Dilaudid or morphine 10 to slow down the bowels they do cause constipation but they'll also relieve this cramping. You may have some cramping from the laxatives. The gallbladder ultrasound did not show inflammation and thickening of the gallbladder wall. Another were G don't have acute cholecystitis. You do have some dilation of the common bile duct and it is 1.3 cm but that's similar to what it was back in December. It's possible you could have a stone in the common bile duct. If so you would need this something called an ERCP either to remove the stone or put a stent around it. That's a procedure that is done through a scope. You have some mildly elevated liver function tests also. The best thing to do right now is to clear out your bowels and that will probably take care of the abdominal pain problem. Take your lab and ultrasound reports to discuss with your Dr. - My Orders Last 24 Hours: My Active Orders 05/08/19 19:03 Saline Lock Insert [OM.PC] Urgent - Assessment/Plan Last 24 Hours: My Active Orders 05/08/19 19:03 Saline Lock Insert [OM.PC] Urgent
== END 2019-05-08 22:06 | disposition home or self-care (01) ==
LOC: JP.ED 17:57
DX: R10.9 Unspecified abdominal pain (principal); Z85.118 Personal history of other malignant neoplasm of bronchus and lung; Z85.830 Personal history of malignant neoplasm of bone
CPT/HCPCS: 36415; 76705; 80053; 85025; 96374; 96375; 96376; 99284-25; J1170; J1885; J2405

== ENCOUNTER 2019-05-13 05:05 | Emergency (ER) | payer MEDICAID ==
[2019-05-13] MEDS ORDERED: Ketorolac 30 MG/ML SDV IVPUSH ONE (05:43)
[2019-05-13] MEDS ORDERED: HYDROmorphone 1 MG/ML Syringe IVPUSH ONE ×2 (05:43→06:36)
--- NOTE | 2019-05-13 05:49 | EDM.PDOC ---
ED HPI GENERAL MEDICAL PROBLEM - General Chief Complaint: Abdominal Pain Stated Complaint: ABD PAIN Time Seen by Provider: 05/13/19 05:30 Source of Information: Reports: Patient, Family History Limitations: Reports: No Limitations - History of Present Illness INITIAL COMMENTS - FREE TEXT/NARRATIVE: 48-year-old female with known metastatic cancer, undergoing chemotherapy and having recurring abdominal pain believed to be from biliary colic. She is scheduled to have her gallbladder out in 1 week. They are using that day to find a "window" between the chemotherapy doses. She had been doing somewhat better since being in here several days ago but last night the pain started at 1 AM. It's very intense, right upper quadrant, sharp and persistent. She had complete pain relief with IV medication on her last visit. Onset: Gradual Duration: Hour(s): (5 hours) Location: Reports: Abdomen (Right upper quadrant) Associated Symptoms: Reports: Loss of Appetite, Nausea/Vomiting (Nausea but no vomiting) Right Upper Abdomen Pain Score (Numeric/FACES): 10 - Related Data Allergies Allergy/AdvReac Type Severity Reaction Status Date / Time No Known Allergies Allergy Verified 05/13/19 05:57 Home Meds: Home Meds Calcium Carbonate/Vitamin D3 [Calcium 500 + Vit D 200 Caplet] 1 each PO BID 03/18 [History] Morphine Sulfate [Morphine Sulfate Cr] 30 mg PO BID 11/05/18 [History] Folic Acid 1 mg PO DAILY 03/18/19 [History] HYDROmorphone [Dilaudid] 2 mg PO Q4H PRN 03/18/19 [History] Potassium Chloride [Klor-Con] 20 meq PO DAILY 03/18/19 [History] Ursodiol 250 mg PO BID 03/18/19 [History] Past Medical History - Past Health History Medical/Surgical History: Denies Medical/Surgical History Gastrointestinal History: Reports: Cholelithiasis [employer]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: Musculoskeletal History: Reports: Back Pain, Chronic Oncologic (Cancer) History: Reports: Bone, Lung - Infectious Disease History Infectious Disease History: Reports: Chicken Pox Other Infectious Disease History: flores arvin flu - Past Surgical History Respiratory Surgical History: Reports: Lung Biopsies, Other (See Below) Other Respiratory Surgeries/Procedures: Lung CA Female Surgical History: Reports: Tubal Ligation Musculoskeletal Surgical History: Reports: Hip Replacement, Other (See Below) Other Musculoskeletal Surgeries/Procedures:: 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 Social & Family History - Tobacco Use Smoking Status *Q: Never Smoker Second Hand Smoke Exposure: No - Caffeine Use Caffeine Use: Reports: Coffee - Alcohol Use Days Per Week of Alcohol Use: 0 - Recreational Drug Use Recreational Drug Use: No ED ROS GENERAL - Review of Systems Review Of Systems: See Below Constitutional: Reports: Malaise. Denies: Fever, Chills HEENT: Reports: No Symptoms Respiratory: Denies: Shortness of Breath Cardiovascular: Denies: Chest Pain GI/Abdominal: Reports: Abdominal Pain, Nausea. Denies: Vomiting : Reports: No Symptoms ED EXAM, GI/ABD - Physical Exam Exam: See Below Exam Limited By: No Limitations General Appearance: Alert, Moderate Distress Eyes: Bilateral: Normal Appearance (somewhat pale but no jaundice) Respiratory/Chest: No Respiratory Distress Cardiovascular: Regular Rate, Rhythm GI/Abdominal Exam: Guarding, Tender (Exquisitely tender in the right upper quadrant) Course - Vital Signs Last Recorded V/S: Last Vital Signs Temp 98.2 F 05/13/19 07:06 Pulse 66 05/13/19 07:06 Resp 16 05/13/19 07:06 BP 103/57 L 05/13/19 07:06 Pulse Ox 97 05/13/19 07:06 - Orders/Labs/Meds Labs: Laboratory Tests 05/13/19 05/13/19 05/13/19 Range/Units 05:52 05:52 05:52 WBC 4.1 L (4.5-11.0) K/uL RBC 3.32 (3.30-5.50) M/uL Hgb 10.5 L (12.0-15.0) g/dL Hct 32.9 L (36.0-48.0) % MCV 99 H (80-98) fL MCH 32 H (27-31) pg MCHC 32 (32-36) % Plt Count 392 (150-400) K/uL Neut % (Auto) 49 (36-66) % Lymph % (Auto) 35 (24-44) % [place] % (Auto) 15 H (2-6) % Eos % (Auto) 1 L (2-4) % Baso % (Auto) 1 (0-1) % Sodium 141 (140-148) mmol/L Potassium 3.8 (3.6-5.2) mmol/L Chloride 104 (100-108) mmol/L Carbon Dioxide 27 (21-32) mmol/L Anion Gap 10.0 (5.0-14.0) mmol/L BUN 11 (7-18) mg/dL Creatinine 0.8 (0.6-1.0) mg/dL Est Cr Clr Drug Dosing 66.54 mL/min Estimated GFR (MDRD) > 60 (>60) Glucose 124 H (74-106) mg/dL Calcium 9.7 (8.5-10.1) mg/dL Total Bilirubin 0.7 (0.2-1.0) mg/dL AST 217 H (15-37) U/L ALT 223 H (12-78) U/L Alkaline Phosphatase 179 H (46-116) U/L Total Protein 7.1 (6.4-8.2) g/dL Albumin 3.3 L (3.4-5.0) g/dL Globulin 3.8 H (2.3-3.5) g/dL Albumin/Globulin Ratio 0.9 L (1.2-2.2) Lipase 123 (73-393) U/L Meds: Medications Discontinued Medications Generic Name Dose Route Start Last Admin Trade Name Freq PRN Reason Stop Dose Admin Hydromorphone HCl 1 mg 05/13/19 05:43 05/13/19 05:51 Dilaudid IVPUSH 05/13/19 05:44 1 mg ONETIME ONE Administration Hydromorphone HCl 1 mg 05/13/19 06:36 05/13/19 06:41 Dilaudid IVPUSH 05/13/19 06:37 1 mg ONETIME ONE Administration Ketorolac Tromethamine 30 mg 05/13/19 05:43 05/13/19 05:49 Toradol IVPUSH 05/13/19 05:44 30 mg ONETIME ONE Administration Sodium Chloride 10 ml 05/13/19 05:43 05/13/19 06:44 Saline Flush FLUSH 10 ml ASDIRECTED PRN Administration Keep Vein Open - Re-Assessments/Exams Free Text/Narrative Re-Assessment/Exam: 05/13/19 05:48 Reviewed her records, her gallbladder ultrasound cholelithiasis and slight dilatation of the bile duct just a few days ago. An IV was started, she was given 1 mg of Dilaudid and 30 mg of IV Toradol, CBC CMP and lipase checked. 05/13/19 06:34 Lipase is normal, AST slightly improved, ALT and alkaline phosphatase slightly worse than 5 days ago. White count is normal. She again responded fairly well to the pain medication. She was given 1 mg of additional Dilaudid IV and was asked to call her oncologist and surgeon in [place] today to give them an update on her condition. Departure - Departure Time of Disposition: 07:07 Disposition: Home, Self-Care 01 Clinical Impression: Colic, biliary, Elevated liver function tests - Discharge Information Instructions: Abdominal Pain, Adult, [id number] Referrals: Fawad Guzman NP [Primary Care Provider] - Forms: ED Department Discharge Care Plan Goals: Rest today, advance diet slowly, continue your current medications and inform your oncologist and surgeon of your increase in symptoms.
[2019-05-13] MEDS: Sodium Chloride 0.9% 10 ML Syringe FLUSH PRN ×3 (05:50→06:44)
== END 2019-05-13 07:07 | disposition home or self-care (01) ==
LOC: JP.ED 05:05
DX: K80.50 Calculus of bile duct without cholangitis or cholecystitis without obstruction (principal); R94.5 Abnormal results of liver function studies; Z79.899 Other long term (current) drug therapy; Z85.118 Personal history of other malignant neoplasm of bronchus and lung; Z85.830 Personal history of malignant neoplasm of bone
CPT/HCPCS: 36415; 80053; 83690; 85025; 96374; 96375; 96376; 99284; J1170; J1885

== ENCOUNTER 2020-04-17 09:06 | Emergency (ER) | payer MEDICAID ==
--- NOTE | 2020-04-17 09:30 | EDM.PDOC ---
ED HPI GENERAL MEDICAL PROBLEM - General Chief Complaint: Lower Extremity Injury/Pain Stated Complaint: RIGHT LEG SWOLLEN Time Seen by Provider: 04/17/20 09:29 Source of Information: Reports: Patient History Limitations: Reports: No Limitations - History of Present Illness INITIAL COMMENTS - FREE TEXT/NARRATIVE: pt arrived with swelling in the rt leg which started 2 days ago. The calf of the leg is tender, She has a history of lung ca with metastatic disease to the bone. She has had CA in the rt hip and did end up with a hip replacement opn that side. She has not had a injury. She does say she always has some swelling but never to this extent. Onset: Gradual Duration: Hour(s): Location: Reports: Lower Extremity, Right Associated Symptoms: Reports: Weakness, Other (pt dd have chemo on Monday. ) Right Lower Leg Pain Score (Numeric/FACES): 3 - Related Data Allergies Allergy/AdvReac Type Severity Reaction Status Date / Time No Known Allergies Allergy Verified 05/13/19 05:57 Home Meds: Home Meds Calcium Carbonate/Vitamin D3 [Calcium 500 + Vit D 200 Caplet] 1 each PO BID 11/05/18 [History] Morphine Sulfate [Morphine Sulfate Cr] 30 mg PO BID 11/05/18 [History] Folic Acid 1 mg PO DAILY 03/18/19 [History] HYDROmorphone [Dilaudid] 2 mg PO Q4H PRN 03/18/19 [History] Past Medical History - Past Health History Medical/Surgical History: Denies Medical/Surgical History Gastrointestinal History: Reports: Cholelithiasis [employer]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: Musculoskeletal History: Reports: Back Pain, Chronic Oncologic (Cancer) History: Reports: Bone, Lung - Infectious Disease History Infectious Disease History: Reports: Chicken Pox Other Infectious Disease History: flores arvin flu - Past Surgical History Respiratory Surgical History: Reports: Lung Biopsies, Other (See Below) Other Respiratory Surgeries/Procedures: Lung CA Female Surgical History: Reports: Tubal Ligation Musculoskeletal Surgical History: Reports: Hip Replacement, Other (See Below) Other Musculoskeletal Surgeries/Procedures:: 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 Social & Family History - Tobacco Use Smoking Status *Q: Never Smoker - Caffeine Use Caffeine Use: Reports: Coffee - Recreational Drug Use Recreational Drug Use: No Review of Systems - Review of Systems Review Of Systems: See Below Constitutional: Reports: No Symptoms Eyes: Reports: No Symptoms Ears: Reports: No Symptoms Nose: Reports: No Symptoms Mouth/Throat: Reports: No Symptoms Respiratory: Reports: No Symptoms Cardiovascular: Reports: No Symptoms Musculoskeletal: Reports: Leg Pain, Other ( increased swelling in the rt lower leg. ) Skin: Reports: No Symptoms ED EXAM, GENERAL - Physical Exam Exam: See Below Free Text/Narrative:: pt arrived with significant increase in swelling and discomfort in the rt lower leg. She does have a history of metastatic lung ca. Exam Limited By: No Limitations General Appearance: Alert, Anxious, Moderate Distress Ears: Normal TMs Nose: Normal Inspection Throat/Mouth: Normal Inspection Head: Atraumatic Respiratory/Chest: No Respiratory Distress Cardiovascular: Regular Rate, Rhythm GI/Abdominal: Soft, Non-Tender (Female) Exam: Deferred Rectal (Female) Exam: Deferred Back Exam: Normal Inspection Extremities: Other ( rt leg is very swollen she does have a positive Homans sign. ) Neurological: Alert, Oriented, Normal Cognition Psychiatric: Anxious Course - Vital Signs Last Recorded V/S: Last Vital Signs Temp 36.7 C 04/17/20 09:23 Pulse 104 H 04/17/20 09:23 Resp 16 04/17/20 09:23 BP 146/93 H 04/17/20 09:23 Pulse Ox 100 04/17/20 09:23 - Orders/Labs/Meds Labs: Laboratory Tests 04/17/20 04/17/20 Range/Units 09:42 09:42 WBC 2.8 L (4.5-11.0) K/uL RBC 2.99 L (3.30-5.50) M/uL Hgb 10.5 L (12.0-15.0) g/dL Hct 32.3 L (36.0-48.0) % MCV 108 H (80-98) fL MCH 35 H (27-31) pg MCHC 33 (32-36) % Plt Count 309 (150-400) K/uL Neut % (Auto) 71 H (36-66) % Lymph % (Auto) 24 (24-44) % [place] % (Auto) 3 (2-6) % Eos % (Auto) 1 L (2-4) % Baso % (Auto) 1 (0-1) % Sodium 140 (140-148) mmol/L Potassium 3.9 (3.6-5.2) mmol/L Chloride 102 (100-108) mmol/L Carbon Dioxide 30 (21-32) mmol/L Anion Gap 8.4 (5.0-14.0) mmol/L BUN 13 (7-18) mg/dL Creatinine 1.0 (0.6-1.0) mg/dL Est Cr Clr Drug Dosing 52.64 mL/min Estimated GFR (MDRD) 58 L (>60) Glucose 85 (74-106) mg/dL Calcium 9.6 (8.5-10.1) mg/dL Total Bilirubin 0.2 D (0.2-1.0) mg/dL AST 43 H D (15-37) U/L ALT 58 (12-78) U/L Alkaline Phosphatase 66 (46-116) U/L Total Protein 7.5 (6.4-8.2) g/dL Albumin 3.3 L (3.4-5.0) g/dL Globulin 4.2 H (2.3-3.5) g/dL Albumin/Globulin Ratio 0.8 L (1.2-2.2) - Re-Assessments/Exams Free Text/Narrative Re-Assessment/Exam: 04/18/20 07:27 pt had a neg us for dvt, Her hip xray looked stable. Her lab work looked ok. Departure - Departure Time of Disposition: 11:12 Disposition: Home, Self-Care 01 Condition: Fair Clinical Impression: Leg swelling - Discharge Information Referrals: Fawad Guzman EXCHANGE CONSULTANT [Primary Care Provider] - Forms: ED Department Discharge Care Plan Goals: continue support hose, elevate leg when possible, rtc if swelling increases. Lasix 20 mg daily for 3 days and then stop. Sepsis Event Note (ED) - Evaluation Sepsis Screening Result: No Definite Risk
--- NOTE | 2020-04-17 10:21 | US ---
VL Duplex Lwr Ext Veins Ltd Rt INDICATION: leg sweling, history of lung ca. FINDINGS: Ultrasound examination of the lower extremity using Doppler and compressive technique demonstrates that the common femoral, femoral, and popliteal veins are patent, and compressible throughout. The calf veins were segmentally visualized and are negative where seen. IMPRESSION: Negative for deep venous thrombosis.
--- NOTE | 2020-04-17 11:14 | CR ---
Hip Min 2V or 3V Rt, Knee 1V or 2V Rt CLINICAL HISTORY: Right leg swelling FINDINGS: Patient has a right hip hemiarthroplasty. Patient had previous pathologic fracture of the proximal femur. There is irregular bone density related to tumor and some bone grafting at the fracture site. The prosthesis appears well seated. The fascial planes around the hip and proximal thigh are well demarcated and have a normal contour. IMPRESSION: Patient is a right hip hemiarthroplasty. This appears well seated Previous pathologic fracture through the trochanteric and subtrochanteric region of the right femur with the bone grafting. Some of this sclerosis could be residual tumor.
== END 2020-04-17 11:25 | disposition home or self-care (01) ==
LOC: JP.ED 09:06
DX: R22.41 Localized swelling, mass and lump, right lower limb (principal)
CPT/HCPCS: 36415; 73502-26-RT; 73502-RT; 73560-26-RT; 73560-RT; 80053; 85025; 93971-26; 93971-RT; 99284-25

== ENCOUNTER 2020-04-27 14:39 | Emergency (ER) | payer MEDICAID ==
--- NOTE | 2020-04-27 15:40 | EDM.PDOC ---
ED HPI GENERAL MEDICAL PROBLEM - General Chief Complaint: General Stated Complaint: SWELLING LEFT SIDE OF NECK Time Seen by Provider: 04/27/20 15:20 Source of Information: Reports: Patient, Old Records History Limitations: Reports: No Limitations - History of Present Illness INITIAL COMMENTS - FREE TEXT/NARRATIVE: 49 yo female with known metastatic lung CA presents with abrupt onset of swelling under the left angle of her jaw that occurred while eating. No hx of the same. No fever. Is mildly uncomfortable. Did not attempt to be seen in the clinic for this. Onset: Today, Sudden Onset Date: 04/27/20 Duration: Hour(s):, Constant Location: Reports: Face Quality: Reports: Dull Severity: Mild Improves with: Reports: None Worsens with: Reports: Eating Context: Reports: Other (See HPI) Associated Symptoms: Reports: No Other Symptoms Treatments [employer] MA[employer]GER: Reports: Other (see below) (none) Left Jaw Pain Score (Numeric/FACES): 3 - Related Data Allergies Allergy/AdvReac Type Severity Reaction Status Date / Time No Known Allergies Allergy Verified 05/13/19 05:57 Home Meds: Home Meds Calcium Carbonate/Vitamin D3 [Calcium 500 + Vit D 200 Caplet] 1 each PO BID 11/05/18 [History] Morphine Sulfate [Morphine Sulfate Cr] 30 mg PO BID 11/05/18 [History] Folic Acid 1 mg PO DAILY 03/18/19 [History] HYDROmorphone [Dilaudid] 2 mg PO Q4H PRN 03/18/19 [History] Past Medical History - Past Health History Medical/Surgical History: Denies Medical/Surgical History Gastrointestinal History: Reports: Cholelithiasis [employer]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: Musculoskeletal History: Reports: Back Pain, Chronic Oncologic (Cancer) History: Reports: Bone, Lung - Infectious Disease History Infectious Disease History: Reports: Chicken Pox Other Infectious Disease History: flores arvin flu - Past Surgical History Respiratory Surgical History: Reports: Lung Biopsies, Other (See Below) Other Respiratory Surgeries/Procedures: Lung CA Female Surgical History: Reports: Tubal Ligation Musculoskeletal Surgical History: Reports: Hip Replacement, Other (See Below) Other Musculoskeletal Surgeries/Procedures:: 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 Social & Family History - Caffeine Use Caffeine Use: Reports: Coffee ED ROS GENERAL - Review of Systems Review Of Systems: See Below Constitutional: Reports: No Symptoms HEENT: Reports: Throat Swelling (L upper neck under the angle of her jaw) Respiratory: Reports: No Symptoms Cardiovascular: Reports: No Symptoms GI/Abdominal: Reports: No Symptoms Musculoskeletal: Reports: No Symptoms Skin: Reports: No Symptoms Neurological: Reports: No Symptoms ED EXAM, GENERAL - Physical Exam Exam: See Below Exam Limited By: No Limitations General Appearance: Alert, WD/WN, No Apparent Distress Eye Exam: Bilateral Eye: Normal Inspection Ears: Normal External Exam, Normal Canal, Hearing Grossly Normal, Normal TMs Ear Exam: Bilateral Ear: Auricle Normal, Canal Normal, TM normal Nose: Normal Inspection, No Blood Throat/Mouth: Normal Inspection, Normal Lips, Normal Oropharynx, Normal Voice, No Airway Compromise Head: Atraumatic, Normocephalic Neck: Other (L submandibular gland is swollen, not hot or warm. ) Respiratory/Chest: No Respiratory Distress Extremities: Normal Inspection Neurological: Alert, Oriented, CN II-XII Intact, Normal Cognition, No Motor/Sensory Deficits Psychiatric: Normal Affect, Normal Mood Skin Exam: Warm, Dry, No Rash Course - Vital Signs Last Recorded V/S: Last Vital Signs Temp 36.8 C 04/27/20 15:02 Pulse 97 04/27/20 15:02 Resp 16 04/27/20 15:02 BP 140/98 H 04/27/20 15:02 Pulse Ox 97 04/27/20 15:02 Departure - Departure Time of Disposition: 15:45 Disposition: Home, Self-Care 01 Condition: Good Clinical Impression: Sialolithiasis of submandibular gland - Discharge Information *PRESCRIPTION DRUG MONITORING PROGRAM REVIEWED*: No *COPY OF PRESCRIPTION DRUG MONITORING REPORT IN PATIENT SHEILA: No Referrals: Fawad Guzman NP [Primary Care Provider] - Additional Instructions: Take Amoxicillin as directed. Drink ample fluids and either chew on sugar-free gum or suck on lemon drops to increase saliva flow. Recheck with your provider before the end of the week, you may need ENT referral if it doesn't pass. Sepsis Event Note (ED) - Focused Exam Vital Signs: Vital Signs Temp Pulse Resp BP Pulse Ox 04/27/20 15:02 36.8 C 97 16 140/98 H 97
== END 2020-04-27 15:55 | disposition home or self-care (01) ==
LOC: JP.ED 14:39
DX: K11.5 Sialolithiasis (principal)
CPT/HCPCS: 99283

== ENCOUNTER 2020-06-17 19:27 | Emergency (ER) | payer MEDICAID ==
[2020-06-17] MEDS ORDERED: Sodium Chloride 0.9% 10 ML Syringe FLUSH PRN ×2 (19:47→20:40)
--- NOTE | 2020-06-17 19:54 | EDM.PDOC ---
ED HPI GENERAL MEDICAL PROBLEM - General Chief Complaint: Chest Pain Stated Complaint: CHEST PAIN LT SIDE Time Seen by Provider: 06/17/20 19:40 Source of Information: Reports: Patient History Limitations: Reports: No Limitations - History of Present Illness INITIAL COMMENTS - FREE TEXT/NARRATIVE: Lexie is a 49-year-old female presenting to the ED for evaluation of acute onset of chest pain. Patient was sitting watching television when she started developed left-sided chest pain that worsened with inspiration. She has a difficult time describing what the pain feels like but becomes more intense with deep inspiration. There is no association with movement or activity. She denies any fever, chills, cough or shortness of breath, although she does have splinted respirations due to the pain. She has not had any chest trauma. She denies any nausea, vomiting, diaphoresis, or back pain. She has not had any dyspepsia. She does not smoke. Although she failed to mention it, the patient does have a history of lung cancer with metastasis to the bones. Further discussion with the patient reveals that she was diagnosed with a lung cancer little over a year ago and she is currently undergoing chemotherapy through [facility]. She was seen by her oncologist on Monday. It has been over 3 months since her last CT of the chest or PET scan. As these all occurred at [place] we have no access to her previous scans. Left Upper Chest Pain Score (Numeric/FACES): 7 - Related Data Allergies Allergy/AdvReac Type Severity Reaction Status Date / Time No Known Allergies Allergy Verified 04/27/20 15:45 Home Meds: Home Meds Calcium Carbonate/Vitamin D3 [Calcium 500 + Vit D 200 Caplet] 1 each PO BID 11/05/18 [History] Morphine Sulfate [Morphine Sulfate Cr] 30 mg PO BID 11/05/18 [History] Folic Acid 1 mg PO DAILY 03/18/19 [History] HYDROmorphone [Dilaudid] 2 mg PO Q4H PRN 03/18/19 [History] Past Medical History - Past Health History Medical/Surgical History: Denies Medical/Surgical History Gastrointestinal History: Reports: Cholelithiasis [employer] INTERN History: Reports: Musculoskeletal History: Reports: Back Pain, Chronic Oncologic (Cancer) History: Reports: Bone, Lung - Infectious Disease History Infectious Disease History: Reports: C-Difficile, Measles, Mumps, Pertussis (Whooping Cough) Other Infectious Disease History: flores arvin flu - Past Surgical History Respiratory Surgical History: Reports: Lung Biopsies, Other (See Below) Other Respiratory Surgeries/Procedures: Lung CA Female Surgical History: Reports: Tubal Ligation Musculoskeletal Surgical History: Reports: Hip Replacement, Other (See Below) Other Musculoskeletal Surgeries/Procedures:: 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 Social & Family History - Tobacco Use Tobacco Use Status *Q: Never Tobacco User - Caffeine Use Caffeine Use: Reports: Coffee - Recreational Drug Use Recreational Drug Use: No ED ROS GENERAL - Review of Systems Review Of Systems: See Below Constitutional: Reports: No Symptoms HEENT: Reports: No Symptoms Respiratory: Reports: Shortness of Breath, Pleuritic Chest Pain Cardiovascular: Reports: Chest Pain Endocrine: Reports: No Symptoms GI/Abdominal: Reports: No Symptoms : Reports: No Symptoms Musculoskeletal: Reports: No Symptoms Skin: Reports: No Symptoms Neurological: Reports: No Symptoms Psychiatric: Reports: No Symptoms Hematologic/Lymphatic: Reports: No Symptoms Immunologic: Reports: No Symptoms ED EXAM, GENERAL - Physical Exam Exam: See Below Exam Limited By: No Limitations General Appearance: Alert, WD/WN, Mild Distress Eye Exam: Bilateral Eye: EOMI, PERRL Throat/Mouth: Normal Inspection, Normal Lips, Normal Teeth, Normal Gums, Normal Oropharynx, Normal Voice, No Airway Compromise Head: Atraumatic, Normocephalic Neck: Normal Inspection, Supple, Non-Tender, Full Range of Motion. No: Carotid Bruit, Lymphadenopathy (R), Lymphadenopathy (L) Respiratory/Chest: Lungs Clear, Normal Breath Sounds, No Accessory Muscle Use, Chest Non-Tender, Splinting Cardiovascular: Normal Peripheral Pulses, Regular Rate, Rhythm, No Edema, No Gallop, No JVD, No Murmur, No Rub Peripheral Pulses: 2+: Carotid (L), Carotid (R), Radial (L), Radial (R) GI/Abdominal: Normal Bowel Sounds, Non-Tender, No Distention, No Abnormal Bruit, No Mass (Female) Exam: Deferred Rectal (Female) Exam: Deferred Back Exam: Normal Inspection, Full Range of Motion Extremities: Normal Inspection, Normal Range of Motion, Non-Tender, No Pedal Edema, Normal Capillary Refill Neurological: Alert, Oriented, CN II-XII Intact, Normal Cognition, Normal Gait, No Motor/Sensory Deficits Psychiatric: Normal Affect, Normal Mood Skin Exam: Warm, Dry Lymphatic: No Adenopathy #1 Interpretation EKG Date: 06/17/20 Time: 19:34 Rhythm: NSR Rate (Beats/Min): 82 [place]: Normal P-Wave: Present QRS: Normal ST-T: Normal QT: Normal EKG Interpretation Comments: Normal EKG. Course - Vital Signs Last Recorded V/S: Last Vital Signs Temp 35.9 C L 06/17/20 19:36 Pulse 64 06/17/20 22:47 Resp 14 06/17/20 22:47 BP 139/92 H 06/17/20 22:47 Pulse Ox 97 06/17/20 22:47 - Orders/Labs/Meds Orders: Active Orders 24 hr Category Date Time Status EKG Documentation Completion [RC] ASDIRECTED Care 06/17/20 19:49 Active Iopamidol [Isovue-370 (76%)] Med 06/17/20 20:45 Active 70 ml IV . DIRECTED Sodium Chloride 0.9% [Saline Flush] Med 06/17/20 19:47 Active 10 ml FLUSH ASDIRECTED PRN Sodium Chloride 0.9% [Saline Flush] Med 06/17/20 20:40 Active 10 ml FLUSH ONETIME PRN Saline Lock Insert [OM.PC] Routine Oth 06/17/20 19:47 Ordered EKG 12 Lead [EK] Routine Ther 06/17/20 19:49 Ordered Medication Orders Iopamidol (Isovue-370 (76%)) 70 ml IV . DIRECTED [facility] Last Admin: 06/17/20 20:58 Dose: 30 ml Documented by: LIBIA Sodium Chloride (Saline Flush) 10 ml FLUSH ASDIRECTED PRN PRN Reason: Keep Vein Open Sodium Chloride (Saline Flush) 10 ml FLUSH ONETIME PRN PRN Reason: PER RADIOLOGY PROTOCOL Last Admin: 06/17/20 20:58 Dose: 10 ml Documented by: LIBIA Labs: Laboratory Tests 06/17/20 06/17/20 06/17/20 Range/Units 19:47 20:10 20:10 WBC 6.4 (4.5-11.0) K/uL RBC 3.68 (3.30-5.50) M/uL Hgb 11.8 L (12.0-15.0) g/dL Hct 36.6 (36.0-48.0) % MCV 100 H (80-98) fL MCH 32 H (27-31) pg MCHC 32 (32-36) % Plt Count 244 (150-400) K/uL Neut % (Auto) 54 (36-66) % Lymph % (Auto) 36 (24-44) % [place] % (Auto) 8 H (2-6) % Eos % (Auto) 2 (2-4) % Baso % (Auto) 1 (0-1) % Sodium 138 L Cancelled (140-148) mmol/L Potassium 3.7 Cancelled (3.6-5.2) mmol/L Chloride 103 Cancelled (100-108) mmol/L Carbon Dioxide 26 Cancelled (21-32) mmol/L Anion Gap 12.7 Cancelled (5.0-14.0) mmol/L BUN 21 H D Cancelled (7-18) mg/dL Creatinine 1.0 Cancelled (0.6-1.0) mg/dL Est Cr Clr Drug Dosing 52.64 Cancelled mL/min Estimated GFR (MDRD) 58 L Cancelled (>60) BUN/Creatinine Ratio Cancelled Glucose 82 Cancelled (74-106) mg/dL Calcium 8.9 Cancelled (8.5-10.1) mg/dL Total Bilirubin 0.1 L Cancelled (0.2-1.0) mg/dL AST 24 Cancelled (15-37) U/L ALT 35 Cancelled (12-78) U/L Alkaline Phosphatase 68 Cancelled (46-116) U/L Troponin I (0.000-0.056) ng/mL C-Reactive Protein 0.13 Cancelled (0.0-0.3) mg/dL Total Protein 7.1 Cancelled (6.4-8.2) g/dL Albumin 3.1 L Cancelled (3.4-5.0) g/dL Globulin 4.0 H Cancelled (2.3-3.5) g/dL Albumin/Globulin Ratio 0.8 L Cancelled (1.2-2.2) SARS-CoV-2 RNA (KAYLIE) (NEGATIVE) 06/17/20 06/17/20 Range/Units 20:10 22:00 WBC (4.5-11.0) K/uL RBC (3.30-5.50) M/uL Hgb (12.0-15.0) g/dL Hct (36.0-48.0) % MCV (80-98) fL MCH (27-31) pg MCHC (32-36) % Plt Count (150-400) K/uL Neut % (Auto) (36-66) % Lymph % (Auto) (24-44) % Hardin % (Auto) (2-6) % Eos % (Auto) (2-4) % Baso % (Auto) (0-1) % Sodium (140-148) mmol/L Potassium (3.6-5.2) mmol/L Chloride (100-108) mmol/L Carbon Dioxide (21-32) mmol/L Anion Gap (5.0-14.0) mmol/L BUN (7-18) mg/dL Creatinine (0.6-1.0) mg/dL Est Cr Clr Drug Dosing mL/min Estimated GFR (MDRD) (>60) BUN/Creatinine Ratio Glucose (74-106) mg/dL Calcium (8.5-10.1) mg/dL Total Bilirubin (0.2-1.0) mg/dL AST (15-37) U/L ALT (12-78) U/L Alkaline Phosphatase (46-116) U/L Troponin I < 0.017 (0.000-0.056) ng/mL C-Reactive Protein (0.0-0.3) mg/dL Total Protein (6.4-8.2) g/dL Albumin (3.4-5.0) g/dL Globulin (2.3-3.5) g/dL Albumin/Globulin Ratio (1.2-2.2) SARS-CoV-2 RNA (KAYLIE) Negative (NEGATIVE) Meds: Medications Generic Name Dose Route Start Last Admin Trade Name Freq PRN Reason Stop Dose Admin Iopamidol 70 ml 06/17/20 20:45 06/17/20 20:58 Isovue-370 (76%) IV 30 ml . DIRECTED ANGELO Administration Sodium Chloride 10 ml 06/17/20 19:47 Saline Flush FLUSH ASDIRECTED PRN Keep Vein Open Sodium Chloride 10 ml 06/17/20 20:40 06/17/20 20:58 Saline Flush FLUSH 10 ml ONETIME PRN Administration PER RADIOLOGY PROTOCOL Discontinued Medications Generic Name Dose Route Start Last Admin Trade Name Freq PRN Reason Stop Dose Admin Sodium Chloride 84 mls @ 3 mls/sec 06/17/20 20:40 06/17/20 20:58 Normal Saline IV 06/17/20 20:41 3 mls/sec ONETIME ONE Administration - Radiology Interpretation Free Text/Narrative:: CT chest angiogram: Cardiovascular structures show normal vasculature enhancement of the pulmonary arteries without sign of pulmonary embolism. Heart size is normal. No sign of aneurysm and that the thoracic aorta. The mediasti num shows a 1.5 cm left hilar lymph node and a 1.3 cm AP window lymph node. The lungs show a spiculated mass in the left lung apex measuring 1.5 x 1.6 x 1.3 cm. There is a 5.5 mm pulmonary nodule in the right upper lobe. There is a small focus of groundglass opacity in the left upper lobe worrisome for possible COVID-19. There is no pleural effusions and no mass or adenopathy in the chest wall or axilla. Upper abdomen shows status post cholecystectomy and the spine shows subcentimeter sclerotic bone lesions in T11 and T12 vertebral bodies. The spiculated mass in the left upper lobe may represent residual or recurrent lung carcinoma. This was discussed with both the radiologist and the patient. We do not have access to the previous scans that were performed at [facility] to see if there is any interval change versus new findings. - Re-Assessments/Exams Free Text/Narrative Re-Assessment/Exam: 06/17/20 23:24 Rhiannon is a 49-year-old female presenting to the ED for evaluation of acute onset of left-sided chest pain that worsens with inspiration. Her work-up today shows a spiculated mass in the left upper lobe with groundglass appearance suggestive for lung adenocarcinoma and COVID-19. In addition, she was found to have a pulmonary nodule measuring 5 mm in the right upper lobe. She does have left hilar and AP window adenopathy and sclerotic lesions in T11 and T12 vertebral bodies that could represent metastatic disease. We did exclude any possibility of pulmonary embolism as the cause of her chest pain. In addition, her EKG and troponin were unremarkable making the likelihood of this being cardiac very low. Patient family divulges she is currently undergoing chemotherapy for metastatic adenocarcinoma of the lung. She is followed by oncology at [facility] who she saw on Monday. I do not find any worrisome findings both in her labs and on her CT as a cause for her left-sided chest pain, however, I wonder if this is not an inflammatory response to her metastatic disease. At this time I would recommend that the patient follow-up as soon as possible with her oncologist. I do think there needs to be a comparison between the CT scan done today and her most recent. I did review with the patient indications to return to the ED for reevaluation. At this time she is suitable for discharge home in satisfactory condition. Covid test was negative. 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 You may obtain copies of the CT scan or take the report that I am giving you to the oncologist. I do think that the metastatic adenocarcinoma of the lung is likely the cause for your chest pain. We will laminated the possibility of pulmonary embolism or cardiac being the cause. Please return to the ED should you develop any significant shortness of breath, worsening of chest pain, or other concerning symptoms. Sepsis Event Note (ED) - Evaluation Sepsis Screening Result: No Definite Risk - Focused Exam Vital Signs: Vital Signs Temp Pulse Resp BP Pulse Ox 06/17/20 22:47 64 14 139/92 H 97 06/17/20 21:55 68 13 141/92 H 98 06/17/20 21:08 70 11 L 145/109 H 100 06/17/20 20:32 70 10 L 135/89 98 06/17/20 19:36 35.9 C L 87 16 156/88 H 100 - Problem List & Annotations (1) Malignant neoplasm SNOMED Code(s): 371572244 Code(s): C80.1 - MALIGNANT (PRIMARY) NEOPLASM, UNSPECIFIED Status: Chronic Priority: Medium Current Visit: Yes (2) Lung mass SNOMED Code(s): 124539908 Code(s): R91.8 - OTHER NONSPECIFIC ABNORMAL FINDING OF LUNG FIELD Status: Chronic Priority: High Current Visit: No (3) Adenocarcinoma of lung SNOMED Code(s): 038353033 Code(s): C34.90 - MALIGNANT NEOPLASM OF UNSP PART OF UNSP BRONCHUS OR LUNG Status: Chronic Priority: High Current Visit: Yes Qualifiers: Laterality: left Qualified Code(s): C34.92 - Malignant neoplasm of unspecified part of left bronchus or lung (4) 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 SNOMED Code(s): 13380075 Code(s): C79.51 - SECONDARY MALIGNANT NEOPLASM OF BONE; C80.1 - MALIGNANT (PRIMARY) NEOPLASM, UNSPECIFIED Status: Acute Priority: High Current Visit: Yes (5) Pleurodynia SNOMED Code(s): 0829829 Code(s): R07.81 - PLEURODYNIA Status: Acute Priority: High Current Visit: Yes - Problem List Review Problem List Initiated/Reviewed/Updated: Yes - My Orders Last 24 Hours: My Active Orders 06/17/20 19:47 Sodium Chloride 0.9% [Saline Flush] 10 ml FLUSH ASDIRECTED PRN Saline Lock Insert [OM.PC] Routine 06/17/20 19:49 EKG Documentation Completion [RC] ASDIRECTED EKG 12 Lead [EK] Routine 06/17/20 20:40 Sodium Chloride 0.9% [Saline Flush] 10 ml FLUSH ONETIME PRN 06/17/20 20:45 Iopamidol [Isovue-370 (76%)] 70 ml IV . DIRECTED - Assessment/Plan Last 24 Hours: My Active Orders 06/17/20 19:47 Sodium Chloride 0.9% [Saline Flush] 10 ml FLUSH ASDIRECTED PRN Saline Lock Insert [OM.PC] Routine 06/17/20 19:49 EKG Documentation Completion [RC] ASDIRECTED EKG 12 Lead [EK] Routine 06/17/20 20:40 Sodium Chloride 0.9% [Saline Flush] 10 ml FLUSH ONETIME PRN 06/17/20 20:45 Iopamidol [Isovue-370 (76%)] 70 ml IV . DIRECTED
[2020-06-17] MEDS ORDERED: Iopamidol 755 Mg/ML 100 ML Bottle IV SCH (20:45)
--- NOTE | 2020-06-17 21:45 | CRLCT ---
INDICATION: Acute chest pain, history of lung cancer TECHNIQUE: CT chest pulmonary PE protocol acquired with 70 cc Isovue 370 IV contrast. COMPARISON: None FINDINGS: Cardiovascular structures: Normal vascular enhancement of the pulmonary arteries, no sign of pulmonary embolism. Heart size is normal. No sign of aneurysm in the thoracic aorta. Mediastinum and clinton: 1.5 cm left hilar lymph node. 1.3 cm AP window lymph node. Lungs: Spiculated mass at the left lung apex measuring 1.5 x 1.6 x 1.3 cm. 5.5 mm pulmonary nodule in the right upper lobe image 63 series 5. Small focus of ground-glass opacity in the left upper lobe on image 47 series 5. Pleura and pericardium: No effusions. Chest wall and axilla: No mass or adenopathy. Upper abdomen: Status post cholecystectomy. Bones: Subcentimeter sclerotic bone lesions in the T11 and T12 vertebral bodies. IMPRESSION: No pulmonary embolism. Spiculated mass in the left upper lobe may represent residual or recurrent lung carcinoma. There is AP window and left hilar adenopathy. There is also a 5 mm pulmonary nodule in the right upper lobe. Small focus of ground-glass opacity in the left upper lobe, nonspecific. Early COVID infection cannot be excluded. Sclerotic bone lesions in the T12 and T11 vertebral bodies. Recommend comparison with prior imaging. Metastatic disease cannot be excluded. Findings discussed with Dr. Gomez at 9:43 p.m. on June 17, 2020. Please note that all CT scans at this facility use dose modulation, iterative reconstruction, and/or weight-based dosing when appropriate to reduce radiation dose to as low as reasonably achievable. Dictated by Yessica Corado MD @ Jun 17 2020 9:22PM Signed by Dr. Yessica Corado @ Jun 17 2020 9:43PM
== END 2020-06-17 23:43 | disposition home or self-care (01) ==
LOC: JP.ED 19:27
DX: C34.92 Malignant neoplasm of unspecified part of left bronchus or lung (principal); C80.1 Malignant (primary) neoplasm, unspecified; C79.51 Secondary malignant neoplasm of bone; Z20.828 Contact with and (suspected) exposure to other viral communicable diseases
CPT/HCPCS: 36415; 71275; 80053; 84484; 85025; 86140; 87635; 93005; 99285; Q9967; 93010; U0002

== ENCOUNTER 2021-01-01 09:07 | Emergency (ER) | payer MEDICAID ==
--- NOTE | 2021-01-01 10:40 | EDM.PDOC ---
ED HPI GENERAL MEDICAL PROBLEM - General Chief Complaint: Cardiovascular Problem Stated Complaint: POSSIBLE BLOOD CLOT IN R LEG Time Seen by Provider: 01/01/21 10:25 Source of Information: Reports: Patient, Old Records History Limitations: Reports: No Limitations - History of Present Illness INITIAL COMMENTS - FREE TEXT/NARRATIVE: 50 yo female here with a slightly swollen area of the R lateral calf. No chest pain or SOB. Is worried about a DVT. Onset: Unknown/Unsure Onset Date: 12/31/20 Duration: Day(s): (1+), Constant Location: Reports: Lower Extremity, Right Quality: Reports: Dull Severity: Mild Improves with: Reports: None Worsens with: Reports: Other (unsure) Context: Reports: Other (See HPI) Associated Symptoms: Reports: Other (none) Treatments MANAGER FILM: Reports: Other (see below) (none) Right Lower Leg Pain Score (Numeric/FACES): 4 - Related Data Allergies Allergy/AdvReac Type Severity Reaction Status Date / Time No Known Allergies Allergy Verified 01/01/21 10:17 Home Meds: Home Meds Calcium Carbonate/Vitamin D3 [Calcium 500 + Vit D 200 Caplet] 1 each PO BID 11/05/18 [History] Morphine Sulfate [Morphine Sulfate Cr] 15 mg PO BID 11/05/18 [History] Folic Acid 1 mg PO DAILY 03/18/19 [History] HYDROmorphone [Dilaudid] 2 mg PO Q4H PRN 03/18/19 [History] Past Medical History - Past Health History Medical/Surgical History: Denies Medical/Surgical History Gastrointestinal History: Reports: Cholelithiasis [employer]NER History: Reports: Musculoskeletal History: Reports: Back Pain, Chronic Oncologic (Cancer) History: Reports: Bone, Lung - Infectious Disease History Infectious Disease History: Reports: C-Difficile, Measles, Mumps, Pertussis (Whooping Cough) Other Infectious Disease History: flores arvin flu - Past Surgical History Respiratory Surgical History: Reports: Lung Biopsies, Other (See Below) Other Respiratory Surgeries/Procedures: Lung CA GI Surgical History: Reports: Cholecystectomy Female Surgical History: Reports: Tubal Ligation Musculoskeletal Surgical History: Reports: Hip Replacement, Other (See Below) Other Musculoskeletal Surgeries/Procedures:: 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 Social & Family History - Tobacco Use Tobacco Use Status *Q: Never Tobacco User Second Hand Smoke Exposure: No - Caffeine Use Caffeine Use: Reports: Coffee, Soda - Alcohol Use Days Per Week of Alcohol Use: 0 - Recreational Drug Use Recreational Drug Use: No ED ROS GENERAL - Review of Systems Review Of Systems: See Below Constitutional: Reports: No Symptoms Respiratory: Reports: No Symptoms Cardiovascular: Reports: No Symptoms Musculoskeletal: Reports: Other (mild R lateral calf swelling) Skin: Reports: No Symptoms (nothing new) Neurological: Reports: No Symptoms ED EXAM, GENERAL - Physical Exam Exam: See Below Exam Limited By: No Limitations General Appearance: Alert, WD/WN, No Apparent Distress Respiratory/Chest: No Respiratory Distress, Lungs Clear, Normal Breath Sounds, No Accessory Muscle Use Cardiovascular: Regular Rate, Rhythm, No Edema Extremities: Other (Slight induration to the R lateral calf without any increase in warmth. ) Neurological: Alert, Oriented, CN II-XII Intact, Normal Cognition, No Motor/Sen gudelia Deficits Psychiatric: Normal Affect, Normal Mood Skin Exam: Warm, Dry, Intact, No Rash. No: Normal Color (has some chronic discoloration of the R leg distal to the mid tibial level circumferentially) Course - Vital Signs Last Recorded V/S: Last Vital Signs Temp 36.8 C 01/01/21 10:26 Pulse 102 H 01/01/21 10:26 Resp 18 01/01/21 10:26 BP 141/114 H 01/01/21 10:26 Pulse Ox 100 01/01/21 10:26 - Orders/Labs/Meds Labs: Laboratory Tests 01/01/21 Range/Units 10:40 D-Dimer, Quantitative 565.03 H (0.0-500.0) ng/mL Departure - Departure Time of Disposition: 11:38 Disposition: Home, Self-Care 01 Condition: Good Clinical Impression: Leg swelling Referrals: Fawad Guzman NP [Primary Care Provider] - Forms: ED Department Discharge Additional Instructions: Elevate the L leg above your heart as much as possible over the weekend. If the problem is not improving see your provider next week. Sepsis Event Note (ED) - Evaluation Sepsis Screening Result: No Definite Risk - Focused Exam Vital Signs: Vital Signs Temp Pulse Resp BP Pulse Ox 01/01/21 10:26 36.8 C 102 H 18 141/114 H 100 01/01/21 09:57 36.8 C 102 H 18 141/114 H 100
== END 2021-01-01 12:00 | disposition home or self-care (01) ==
LOC: JP.ED 09:07
DX: M79.89 Other specified soft tissue disorders (principal); M79.661 Pain in right lower leg
CPT/HCPCS: 36415; 85379; 99283

== ENCOUNTER 2022-05-06 13:19 | Emergency (ER) | payer MEDICAID | END 2022-05-06 15:40 | disposition home or self-care (01) | LOC: JP.ED 13:19 | DX: R20.2 Paresthesia of skin (principal); C79.31 Secondary malignant neoplasm of brain | CPT/HCPCS: 70450; 70450-26; 99284 ==

== ENCOUNTER 2022-06-11 19:19 | Emergency (ER) | payer MEDICAID ==
[2022-06-11 21:53] LABS: ESTIMATED GFR 103 mL/min (>60)
[2022-06-11] MEDS ORDERED: traZODone 50 MG Tab PO ONE (22:30)
== END 2022-06-11 23:27 | disposition home or self-care (01) ==
LOC: JP.ED 19:19
DX: C71.8 Malignant neoplasm of overlapping sites of brain (principal); C78.00 Secondary malignant neoplasm of unspecified lung; F19.982 Other psychoactive substance use, unspecified with psychoactive substance-induced sleep disorder; G63 Polyneuropathy in diseases classified elsewhere; Z87.891 Personal history of nicotine dependence
CPT/HCPCS: 36415; 73562; 80053; 81001; 82248; 83880; 85025; 99284; A9270

== ENCOUNTER 2022-06-13 16:40 | Emergency (ER) | payer MEDICAID ==
[2022-06-13] MEDS ORDERED: Sodium Chloride 0.9% 10 ML Syringe FLUSH PRN (17:38)
[2022-06-13 18:00] LABS: CORONAVIRUS COVID-19 NAA NEGATIVE (NEGATIVE)
[2022-06-13 18:12] LABS: ESTIMATED GFR 103 mL/min (>60)
[2022-06-13] MEDS ORDERED: Potassium Chloride 20 MEQ Tab.ER PO ONE (18:15)
== END 2022-06-13 18:51 | disposition home or self-care (01) ==
LOC: JP.ED 16:40
DX: S50.12XA Contusion of left forearm, initial encounter (principal); C34.92 Malignant neoplasm of unspecified part of left bronchus or lung; G63 Polyneuropathy in diseases classified elsewhere; E86.0 Dehydration; E87.6 Hypokalemia; Z79.899 Other long term (current) drug therapy; Z20.822 Contact with and (suspected) exposure to COVID-19; W18.30XA Fall on same level, unspecified, initial encounter
CPT/HCPCS: 0241U; 36415; 73080; 73110; 80053; 82550; 83605; 84145; 85025; 86140; 99285; A9270

== ENCOUNTER 2022-06-15 12:29 | Emergency (ER) | payer MEDICAID ==
[2022-06-15] MEDS ORDERED: Magnesium Oxide 400 MG Tab PO ONE (13:55)
== END 2022-06-15 14:42 | disposition home or self-care (01) ==
LOC: JP.ED 12:29
DX: E87.6 Hypokalemia (principal); E86.0 Dehydration; C34.92 Malignant neoplasm of unspecified part of left bronchus or lung; C79.31 Secondary malignant neoplasm of brain; Z79.899 Other long term (current) drug therapy
CPT/HCPCS: 36415; 80048; 83735; 99285; A9270

== ENCOUNTER 2022-06-16 23:28 | Emergency (ER) | payer MEDICAID ==
[2022-06-17] MEDS ORDERED: HYDROmorphone 1 MG/ML Syringe IM ONE (00:17)
== END 2022-06-17 01:59 | disposition home or self-care (01) ==
LOC: JP.ED 23:28
DX: L03.115 Cellulitis of right lower limb (principal)
CPT/HCPCS: 36415; 80048; 83605; 84145; 85025; 96372; 99283; J1170

== ENCOUNTER 2022-06-18 07:31 | Emergency (ER) | payer MEDICAID ==
[2022-06-18] MEDS ORDERED: Sodium Chloride 0.9% 10 ML Syringe FLUSH PRN (08:40)
[2022-06-18] MEDS ORDERED: Acetaminophen 500 MG Tab PO ONE (08:50)
[2022-06-18 09:34] LABS: ESTIMATED GFR 88 mL/min (>60)
[2022-06-18] MEDS ORDERED: Vancomycin 1.4 GM in Sodium Chloride 0.9% 250 ML IV ONE (10:00)
[2022-06-18] MEDS ORDERED: Lactated Ringers 1,000 ML IV ONE (10:08)
[2022-06-18] MEDS ORDERED: Sodium Chloride 0.9% 500 ML IV ONE (14:03)
== END 2022-06-18 14:55 | disposition home or self-care (01) ==
LOC: JP.ED 07:31
DX: L03.115 Cellulitis of right lower limb (principal); L03.114 Cellulitis of left upper limb; L03.113 Cellulitis of right upper limb; C34.92 Malignant neoplasm of unspecified part of left bronchus or lung; Z87.891 Personal history of nicotine dependence
CPT/HCPCS: 36415; 73700; 80053; 83605; 85025; 85610; 85651; 85730; 86140; 87040; 87077; 87186; 96365; 96366; 99284; A9270; J3370; J3490; J7040; J7050; J7120

== ENCOUNTER 2022-06-26 09:00 | Emergency (ER) | payer MEDICAID ==
[2022-06-26 10:40] LABS: ESTIMATED GFR 88 mL/min (>60)
== END 2022-06-26 12:03 | disposition home or self-care (01) ==
LOC: JP.ED 09:00
DX: R55 Syncope and collapse (principal); M54.2 Cervicalgia; Z87.891 Personal history of nicotine dependence; Z79.899 Other long term (current) drug therapy
CPT/HCPCS: 36415; 80053; 83605; 84145; 85025; 93005; 99284

== ENCOUNTER 2022-08-07 13:56 | Emergency (ER) | payer MEDICAID | END 2022-08-07 15:52 | disposition home or self-care (01) | LOC: JP.ED 13:56 | DX: S81.002A Unspecified open wound, left knee, initial encounter (principal); S81.001A Unspecified open wound, right knee, initial encounter; R53.83 Other fatigue | CPT/HCPCS: 36415; 80048; 83605; 85025; 99282; 99284 ==

== ENCOUNTER 2022-09-07 10:56 | Emergency (ER) | payer MEDICAID ==
[2022-09-07 12:20] LABS: ESTIMATED GFR 107 mL/min (>60)
[2022-09-07 12:27] LABS: TROPONIN I HIGH SENSITIVITY < 4.0 pg/mL (<=60.3)
== END 2022-09-07 13:07 | disposition home or self-care (01) ==
LOC: JP.ED 10:56
DX: R09.1 Pleurisy (principal); Z79.899 Other long term (current) drug therapy; Z86.16 Personal history of COVID-19; Z90.49 Acquired absence of other specified parts of digestive tract
CPT/HCPCS: 36415; 71046; 71046-26; 80048; 84484; 85025; 93005; 99285

== ENCOUNTER 2022-10-28 11:13 | Emergency (ER) | payer MEDICAID ==
[2022-10-28] MEDS ORDERED: MVI, Adult with Vitamin K 10 ML, Thiamine 200 MG, Zinc/Copper/Manganese/Selenium 1 ML i... IV ONE ×8 (11:49→12:15)
[2022-10-28 12:19] LABS: ESTIMATED GFR 67 mL/min (>60)
[2022-10-28] MEDS ORDERED: fentaNYL 12 MCG/HR Transdermal Patch TRDERM SCH (14:45)
== END 2022-10-28 15:55 | disposition home or self-care (01) ==
LOC: JP.ED 11:13
DX: C80.1 Malignant (primary) neoplasm, unspecified (principal); C79.31 Secondary malignant neoplasm of brain; G89.29 Other chronic pain; R53.1 Weakness; Z86.16 Personal history of COVID-19
CPT/HCPCS: 36415; 80053; 85025; 96365; 96366; 99284; A9270; J3411; J7120; J3490